=== PATIENT | male | born 1980 ===

== ENCOUNTER 2021-04-21 10:57 | Emergency (ER) | payer SELFPAY ==
[~2021-04-21] VITALS: Ht 182.9 cm; Wt 90.7 kg
[2021-04-21 11:28] VITALS: BP 123/91
== END 2021-04-21 12:45 | disposition home or self-care (01) ==
LOC: ER 10:57
DX: F41.9 Anxiety disorder, unspecified (principal); F12.10 Cannabis abuse, uncomplicated